=== PATIENT | female | born 2000 | race Caucasian/White ===

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

== ENCOUNTER 2022-06-19 08:49 | Observation (INO) | payer BC ==
[~2022-06-19] VITALS: Ht 162.6 cm; Wt 57.2 kg
[2022-06-19 09:27] VITALS: BP 112/59
== END 2022-06-19 10:15 | disposition home or self-care (01) ==
LOC: MLD 08:49
PROVIDERS: ADMIT Obstetrics & Gynecology; ATTEND Obstetrics & Gynecology
DX: O36.8330 Maternal care for abnormalities of the fetal heart rate or rhythm, third trimester, not applicable or unspecified (principal); Z20.822 Contact with and (suspected) exposure to COVID-19; O26.893 Other specified pregnancy related conditions, third trimester; R10.9 Unspecified abdominal pain; Z3A.34 34 weeks gestation of pregnancy
CPT/HCPCS: 59025; 81000; 87426; G0378

== ENCOUNTER 2022-07-02 08:13 | Observation (INO) | payer BC ==
[~2022-07-02] VITALS: Ht 162.6 cm; Wt 57.6 kg
[2022-07-02] MEDS ORDERED: PRETAB PO (09:00)
[2022-07-02 10:37] VITALS: BP 119/66
== END 2022-07-02 10:30 | disposition home or self-care (01) ==
LOC: MLD 08:13
PROVIDERS: ADMIT Obstetrics & Gynecology; ATTEND Obstetrics & Gynecology
DX: O36.8130 Decreased fetal movements, third trimester, not applicable or unspecified (principal); Z20.822 Contact with and (suspected) exposure to COVID-19; Z3A.36 36 weeks gestation of pregnancy
CPT/HCPCS: 59025; 76815; 81000; 87426; G0378; Q0092

== ENCOUNTER 2022-07-07 20:45 | Observation (INO) | payer BC ==
[~2022-07-07] VITALS: Ht 162.6 cm; Wt 57.6 kg
[~2022-07-07 20:45] MED LIST: PRETAB PO
[2022-07-07] MEDS ORDERED: LACTATED RINGERS 1,000 ML IV SCH (21:25)
[2022-07-07] MEDS ORDERED: cefTRIAXone 1,000 MG VIAL ONE (21:58)
== END 2022-07-08 02:20 | disposition home or self-care (01) ==
LOC: MLD 20:45
PROVIDERS: ADMIT Obstetrics & Gynecology; ATTEND Obstetrics & Gynecology
DX: O62.9 Abnormality of forces of labor, unspecified (principal); Z3A.36 36 weeks gestation of pregnancy
CPT/HCPCS: 96365; 96366; G0378; J0696; J7120

== ENCOUNTER 2022-07-26 22:10 | Emergency (ER) | payer BC ==
[~2022-07-26] VITALS: Ht 162.6 cm; Wt 53.5 kg
[2022-07-26 22:15] VITALS: BP 133/76
[2022-07-26] MEDS ORDERED: ACETAMINOPHEN EXTRA STRENGTH 500 MG TAB ONE (22:22)
[2022-07-26] MEDS: ACETAMINOPHEN EXTRA STRENGTH 500 MG TAB PO ONE (22:23)
--- NOTE | 2022-07-26 22:25 | NUR ---
pt to bed
--- NOTE | 2022-07-26 22:28 | NUR ---
Patient BIB by family from home. C/O fever x today. Patient reported, had fever with lower back pain~ 1300 PM today. No cough, no congestion, 8 days ago at [facility], Follow up with Dr. Rodarte for wound check today, Per patient-normal wound.
--- NOTE | 2022-07-26 22:43 | NUR ---
URINE WALKED TO LAB.
[2022-07-26 22:55] LABS: APPEARANCE,URINE SL CLOUDY (CLEAR); BILIRUBIN,URINE NEGATIVE (NEGATIVE); BLOOD, URINE 3+ (NEGATIVE); COLOR,URINE YELLOW (YELLOW); LEUKOCYTE ESTERASE ,URINE 1+ (NEGATIVE); NITRITE, URINE NEGATIVE (NEGATIVE); PH,URINE 7.5 (5.0-9.0); UGLUCOSE NEGATIVE (NEGATIVE)
--- NOTE | 2022-07-26 22:55 | NUR ---
COVID-19 and flu swabs collected and sent to lab.
[2022-07-26 23:02] LABS: WBC,URINE 20-60 /HPF (0-5)
--- NOTE | 2022-07-26 23:06 | NUR ---
Dr. Coy examining patient.
[2022-07-26] MEDS ORDERED: ACET-2619 PO (23:47)
[2022-07-26] MEDS ORDERED: CEPH250C16 PO (23:47)
[2022-07-26] MEDS ORDERED: IBUP-1842 PO (23:47)
[2022-07-27 00:06] VITALS: BP 128/76
--- NOTE | 2022-07-27 00:06 | NUR ---
Patient discharged with v/s stable. Written and verbal after care instructions given and explained. Patient alert, oriented and verbalized understanding of instructions. Ambulatory with steady gait. All questions addressed prior to discharge. ID band removed. Patient advised to follow up with PMD. Rx of Tylenol, Cephalexin and Ibuprofen given. Patient educated on indication of medication including possible reaction and side effects. Opportunity to ask questions provided and answered.
== END 2022-07-27 00:06 | disposition home or self-care (01) ==
LOC: MED 22:10
DX: O86.20 Urinary tract infection following delivery, unspecified (principal); O86.4 Pyrexia of unknown origin following delivery; Z20.822 Contact with and (suspected) exposure to COVID-19; O99.53 Diseases of the respiratory system complicating the puerperium; J45.909 Unspecified asthma, uncomplicated; Z98.890 Other specified postprocedural states; Z79.899 Other long term (current) drug therapy; Z79.1 Long term (current) use of non-steroidal anti-inflammatories (NSAID); Z79.2 Long term (current) use of antibiotics
CPT/HCPCS: 81001; 87086; 99283

== ENCOUNTER 2022-11-29 18:55 | Emergency (ER) | payer BC ==
[~2022-11-29] VITALS: Ht 162.6 cm; Wt 47.6 kg
[~2022-11-29 18:55] MED LIST changes: +ACET-2619 PO; +CEPH250C16 PO; +IBUP-1842 PO
[2022-11-29 19:16] VITALS: BP 117/70; PULSE 93; RESP 16; TEMP 98.5; O2SAT 99
--- NOTE | 2022-11-29 20:17 | NUR ---
PT AMBULATES TO BED 12
[2022-11-29 20:42] LABS: BASOPHILS % (AUTO) 0.3 % (0.0-2.0); EOSINOPHILS # (AUTO) 0.1 K/uL (0-0.4); EOSINOPHILS % (AUTO) 1.4 % (0.0-4.0); HEMATOCRIT 34.6 % (36-48); HEMOGLOBIN 11.2 g/dL (12.0-16.0); LYMPHOCYTES # (AUTO) 2.3 K/uL (2.5-16.5); LYMPHOCYTES % (AUTO) 26.9 % (20.5-51.1); MEAN CORPUSCULAR HEMOGLOBIN 26 pg (27-31); MEAN CORPUSCULAR HGB CONC 33 g/dL (33-37); MONOCYTES # (AUTO) 0.5 K/uL (0.8-1.0); MONOCYTES % (AUTO) 5.7 % (1.7-9.3); NEUTROPHILS # (AUTO) 5.6 K/uL (1.8-7.7); NEUTROPHILS % (AUTO) 65.7 % (42.2-75.2); PLATELET COUNT (AUTO) 415 K/uL (140-450); RED BLOOD CELL COUNT(AUTO) 4.27 MIL/uL (4.20-5.40); RED CELL DISTRIBUTION WIDTH 14.2 % (11.6-13.7); WHITE BLOOD COUNT (AUTO) 8.6 K/uL (4.5-11.0)
[2022-11-29 20:58] LABS: APPEARANCE,URINE SL CLOUDY (CLEAR); BILIRUBIN,URINE NEGATIVE (NEGATIVE); BLOOD, URINE 3+ (NEGATIVE); COLOR,URINE YELLOW (YELLOW); LEUKOCYTE ESTERASE ,URINE NEGATIVE (NEGATIVE); NITRITE, URINE NEGATIVE (NEGATIVE); UGLUCOSE NEGATIVE (NEGATIVE)
--- NOTE | 2022-11-29 21:00 | NUR ---
c/o lower abdominal pain at this time, ERMD was notified
[2022-11-29 21:33] LABS: RBC,URINE 50-80 /HPF (0-5)
[2022-11-29] MEDS ORDERED: ACETAMINOPHEN EXTRA STRENGTH 500 MG TAB PO ONE (21:35)
[2022-11-29] MEDS ORDERED: IBUP-2213 PO (22:09)
[2022-11-29 22:16] VITALS: BP 104/64; PULSE 98; RESP 16; TEMP 98.5; O2SAT 98
--- NOTE | 2022-11-29 22:17 | NUR ---
Patient discharged with v/s stable. Written and verbal after care instructions given and explained. Patient verbalized understanding. New rx ibuprofen. Ambulatory with steady gait. All questions addressed prior to discharge. Advised to follow up with PMD.
== END 2022-11-29 22:17 | disposition home or self-care (01) ==
LOC: MED 18:55
DX: O20.0 Threatened abortion (principal); J45.909 Unspecified asthma, uncomplicated; Z3A.08 8 weeks gestation of pregnancy; Z79.899 Other long term (current) drug therapy
CPT/HCPCS: 36415; 76817; 81001; 81025; 84702; 85025; 86900; 86901; 99284; Q0092